=== PATIENT | male | born 1945 | race African-American/Black ===

== ENCOUNTER 2019-06-06 11:08 | Emergency (ER) | payer MEDICARE, OTHER ==
[~2019-06-06] VITALS: Ht 175.3 cm; Wt 74.8 kg
[2019-06-06 11:08] VITALS: BP 132/92
[2019-06-06] MEDS ORDERED: Morphine Sulfate 2mg/ml Inj(IV/IM USE ONLY) ONE (11:42)
[2019-06-06] MEDS ORDERED: Morphine Sulfate 2mg/ml Inj(IV/IM USE ONLY) IVP ONE (11:45)
[2019-06-06 11:55] LABS: ANION GAP 7 mmol/L (5-15); BLOOD UREA NITROGEN 41 mg/dL (7-18); CALCIUM 9.3 MG/DL (8.5-10.1); CARBON DIOXIDE 21 MMOL/L (21-32); CHLORIDE 103 MMOL/L (98-107); CREATININE 2.2 MG/DL (0.55-1.30); POTASSIUM 4.5 MMOL/L (3.5-5.1); SODIUM 131 MMOL/L (136-145)
[2019-06-06 11:59] LABS: BASOPHILS % (AUTO) 0.6 % (0.0-2.0); HEMATOCRIT 49.7 % (42.0-52.0); HEMOGLOBIN 16.2 G/DL (14.2-18.0); LYMPHOCYTES % (AUTO) 13.1 % (20.0-45.0); MEAN CORPUSCULAR VOLUME 93 FL (80-99); MONOCYTES % (AUTO) 7.8 % (1.0-10.0); NEUTROPHILS % (AUTO) 78.5 % (45.0-75.0); PLATELET COUNT 190 K/UL (150-450); RED BLOOD COUNT 5.35 M/UL (4.70-6.10); RED CELL DISTRIBUTION WIDTH 11.8 % (11.6-14.8); WHITE BLOOD COUNT 7.2 K/UL (4.8-10.8)
[2019-06-06 12:00] LABS: INR 1.2 (0.9-1.1)
--- NOTE | 2019-06-06 12:01 | Diagnostic Imaging Report ---
EXAM: XR Chest, 1 View CLINICAL HISTORY: CP TECHNIQUE: Frontal view of the chest. COMPARISON: No relevant prior studies available. FINDINGS: Lungs: Unremarkable. No consolidation. Pleural space: Unremarkable. No pneumothorax. Heart: Cardiomegaly. Mediastinum: Unremarkable. Bones/joints: Unremarkable. Upper abdomen: Elevated right hemidiaphragm. IMPRESSION: Cardiomegaly. No acute process.
--- NOTE | 2019-06-06 12:02 | Emergency Room Report ---
History of Present Illness General Chief Complaint: Dyspnea/Respdistress Source: Patient Present Illness HPI 74-year-old male presents the ED complaining of chest pain. Brought in by family from home. States he has been having chest pain for 1 week. Dull, midsternal, 7 out of 10, nonradiating. Denies fevers or chills. Denies cough. Also states he has been having diarrhea for 1 week as well. Denies sick contacts or recent travel. No other aggravating relieving factors. Denies any other associated symptoms COVID-19 risk:Contact w/high r: No COVID-19 risk:Travel to affect: No Has patient experienced brown: Yes Coronavirus symptoms experienc: Shortness of Breath Allergies: Coded Allergies: No Known Allergies (Unverified , 06/06/19) Patient History Past Medical History: none Past Surgical History: none Pertinent Family History: none Social History: Denies: smoking, alcohol use, drug use Immunizations: UTD Reviewed Nursing Documentation: PMH: Agreed; PSxH: Agreed Nursing Documentation-PMH Past Medical History: No Stated History Review of Systems All Other Systems: negative except mentioned in HPI Physical Exam Vital Signs Date Time Temp Pulse Resp B/P (MAP) Pulse Ox O2 Delivery O2 Flow Rate FiO2 06/06/19 10:53 97.5 65 20 132/92 (105) 99 Room Air Sp02 EP Interpretation: reviewed, normal General Appearance: no apparent distress, alert, GCS 15, non-toxic Head: normocephalic, atraumatic Eyes: bilateral eye normal inspection, bilateral eye PERRL ENT: hearing grossly normal, normal pharynx, no angioedema, normal voice Neck: full range of motion, supple/symm/no masses Respiratory: chest non-tender, lungs clear, normal breath sounds, speaking full sentences Cardiovascular #1: regular rate, rhythm, no edema Cardiovascular #2: 2+ carotid (R), 2+ carotid (L), 2+ radial (R), 2+ radial (L) , 2+ dorsalis pedis (R), 2+ dorsalis pedis (L) Gastrointestinal: normal bowel sounds, non tender, soft, non-distended, no guarding, no rebound Rectal: deferred Genitourinary: normal inspection, no CVA tenderness Musculoskeletal: back normal, normal range of motion, gait/station normal, non- tender Neurologic: alert, motor strength/tone normal, oriented x3, sensory intact, responsive, speech normal Psychiatric: judgement/insight normal, memory normal, mood/affect normal, no suicidal/homicidal ideation Reflexes: 3+ bicep (R), 3+ bicep (L), 3+ tricep (R), 3+ tricep (L), 3+ knee (R) , 3+ knee (L) Lymphatic: no adenopathy Procedures Critical Care Time Critical Care Time i. I feel this is a highly complex case requiring extensive working including EKG/Rhythm strip, Xray/CT/US, Blood/urine lab work, repeat exams while in ED, and administration of strong opiates/narcotics for pain control, admission to hospital or close patient follow up. Total time: 30 min bedside evaluation and treatment excludes procedures (EKG). Reason for critical care: STEMI Possible complications: hypotension, hypertension, ID, shock, arrhythmias, metabolic acidosis, end organ damage, respiratory failure. Interventions: Presenting with chest pain x1 week. Also having diarrhea. EKG shows ST elevations in anterior leads with reciprocal depressions in lateral leads. Discussed with [facility] and they agree that this is a STEMI. Patient given morphine. Given aspirin. Given IV fluids. Patient will be transported via 911 to [facility] Course: Consultations: nursing staff, EMS, family Performed by: Dr Lee Tolerated well condition = critical j. because of unstable vital signs this patient had a condition that could potentially threaten life or limb. I feel this is a critical patient who required my full attention while patient was considered critical. Total Critical Care Time excluding procedures was greater than 35 minutes Medical Decision Making Diagnostic Impression: Primary Impression: STEMI (ST elevation myocardial infarction) Qualified Codes: I21.3 - ST elevation (STEMI) myocardial infarction of unspecified site ER Course Hospital Course 74-year-old male presents ED complaining of diarrhea. Complaining of chest pain Differential diagnoses include: ID/unstable angina, contusion, muscle strain, PTX, rib fracture Clinical course Patient placed on stretcher. After initial history and physical I ordered labs , IV fluids, UA, EKG and chest x-ray EKG- ST elevations in leads with reciprocal depressions in lateral leads. Chest x-ray- no acute process Given morphine for pain. given aspirin. given IVFs. Discussed case with STEMI team at [facility] and they agree that patient should be transferred for higher level of care 911 called to take patient to [facility] I. I feel this is a highly complex case requiring extensive working including EKG/Rhythm strip, Xray/CT/US, Blood/urine lab work, repeat exams while in ED, and administration of strong opiates/narcotics for pain control, admission to hospital or close patient follow up. Diagnosis - STEMI Transferred to [facility] critical condition EKG Diagnostic Results Rate: normal Rhythm: NSR ST Segments: other - ST elevations in anterior leads, ST depressions in lateral leads ASA given to the pt in ED: Yes Rhythm Strip Diag. Results EP Interpretation: yes Rhythm: NSR, no PVC's, no ectopy Chest X-Ray Diagnostic Results Chest X-Ray Diagnostic Results : Chest X-Ray Ordered: Yes # of Views/Limited/Complete: 1 View Indication: Chest Pain EP Interpretation: Yes Interpretation: no consolidation, no effusion, no pneumothorax, no acute cardiopulmonary disease Impression: No acute disease Electronically Signed by: Electronically signed by López Lee MD Last Vital Signs Date Time Temp Pulse Resp B/P (MAP) Pulse Ox O2 Delivery O2 Flow Rate FiO2 06/06/19 11:08 97.5 99 20 132/92 99 Room Air Status: improved Disposition: XFER SHT-TRM HOSP Condition: Critical Referrals: NON PHYSICIAN (PCP) López Lee MD Jun 06, 2019 12:02
[2019-06-06 12:08] VITALS: BP 125/81
[2019-06-06 12:09] LABS: ALANINE AMINOTRANSFERASE 94 U/L (12-78); ALBUMIN 3.4 G/DL (3.4-5.0); ALBUMIN/GLOBULIN RATIO 0.9 (1.0-2.7); ALKALINE PHOSPHATASE 77 U/L (46-116); ASPARTATE AMINO TRANSFERASE 243 U/L (15-37); BILIRUBIN,TOTAL 0.6 MG/DL (0.2-1.0)
== END 2019-06-06 12:15 | disposition short-term general hospital (02) ==
LOC: EDBD 11:08 → EMR 11:48
DX: I21.3 ST elevation (STEMI) myocardial infarction of unspecified site (principal); R19.7 Diarrhea, unspecified
CPT/HCPCS: 36415; 71045; 80053; 83880; 84484; 85025; 85610; 85730; 93005; 96361; 96374; 99291; J2270; J7030